=== PATIENT | female | born 1975 | race Caucasian/White ===

== ENCOUNTER 2018-07-17 12:48 | Emergency (ER) | payer SELFPAY ==
--- NOTE | 2018-07-17 13:45 | RAD ---
RADIOGRAPH CHEST 2 VIEWS: HISTORY: 43-year-old female with tachycardia and palpitations. FINDINGS: There is no air space density, pulmonary edema, pleural effusion, pneumothorax, or cardiomegaly. IMPRESSION: No acute cardiopulmonary findings. ilan POS: JUSTINO
[2018-07-17 13:48] LABS: #Basophils 0.1 thou/uL (0.0-0.2); #Eosinphils 0.1 thou/uL (0.0-0.7); #Lymphocytes 2.7 thou/uL (1.20-3.40); #Monocytes 0.6 thou/uL (0.11-0.59); #Neutrophils 6.1 thou/uL (1.40-6.50); %Basophils 0.6 % (0.0-1.0); %Eosinophils 0.8 % (0.0-10.0); %Lymphocytes 28.3 % (21.0-51.0); %Monocytes 5.9 % (0.0-10.0); %Neutrophils 64.5 % (42.0-75.0); Hemoglobin 14.4 g/dL (12.0-16.0); Mean Corpuscular Hemoglobin 31.1 pg (27.0-31.0); Mean Corpuscular Volume 91.6 fL (78.0-98.0); Mean Platelet Volume 8.3 fL (7.4-10.4); Platelet Count 235 thou/uL (130-400); RBC Distribution Width 11.5 % (11.5-14.5); Red Blood Cell (RBC) Count 4.62 mill/uL (4.20-5.40); White Blood Cell (WBC) Count 9.4 thou/uL (4.8-10.8)
[2018-07-17 14:08] LABS: Anion Gap 14 mmol/L (10-20); BUN (Urea Nitrogen) 10 mg/dL (7.0-18.7); Calc. Creatinine Clearance 0 mL/min (70-130); Calcium 9.5 mg/dL (7.8-10.44); Carbon Dioxide 21 mmol/L (22-29); Chloride 105 mmol/L (98-107); Estimated GFR-MDRD Greater than 90; Glucose 91 mg/dL (70-105); Potassium 3.9 mmol/L (3.5-5.1); Sodium 136 mmol/L (136-145)
[2018-07-17 14:15] LABS: CKMB 1.1 ng/mL (0-6.6); Troponin I Less than 0.010 ng/mL (< 0.028)
== END 2018-07-17 15:26 | disposition home or self-care (01) ==
LOC: ERS 12:48
DX: R00.2 Palpitations (principal)
CPT/HCPCS: 36415; 71046; 80048; 82553; 84484; 85025; 93005

== ENCOUNTER 2019-02-11 15:16 | Emergency (ER) | payer SELFPAY ==
[2019-02-11 15:52] LABS: #Basophils 0.1 thou/uL (0.0-0.2); #Eosinphils 0.1 thou/uL (0.0-0.7); #Lymphocytes 2.7 thou/uL (1.20-3.40); #Monocytes 0.7 thou/uL (0.11-0.59); #Neutrophils 4.1 thou/uL (1.40-6.50); %Basophils 1.3 % (0.0-1.0); %Eosinophils 1.3 % (0.0-10.0); %Lymphocytes 34.9 % (21.0-51.0); %Monocytes 8.9 % (0.0-10.0); %Neutrophils 53.6 % (42.0-75.0); Mean Corpuscular HGB CONC 33.7 g/dL (32.0-36.0); Mean Corpuscular Hemoglobin 30.6 pg (27.0-31.0); Mean Corpuscular Volume 90.7 fL (78.0-98.0); Mean Platelet Volume 8.5 fL (7.4-10.4); Platelet Count 240 thou/uL (130-400); RBC Distribution Width 11.5 % (11.5-14.5); Red Blood Cell (RBC) Count 4.59 mill/uL (4.20-5.40); White Blood Cell (WBC) Count 7.6 thou/uL (4.8-10.8)
[2019-02-11 16:02] LABS: BHCG - Serum Negative (NEGATIVE); Pregs Control Background? CLEAR/WHITE (CLR/WHITE); Pregs Control Bar Appear? YES (CONTROL BAR)
[2019-02-11 16:13] LABS: ALT (SGPT) 24 U/L (8-55); AST (SGOT) 18 U/L (5-34); Albumin 4.3 g/dL (3.5-5.0); Alkaline Phosphatase 51 U/L (40-150); Anion Gap 11 mmol/L (10-20); BUN (Urea Nitrogen) 13 mg/dL (7.0-18.7); Bilirubin, Total 0.6 mg/dL (0.2-1.2); Calc. Creatinine Clearance 0 mL/min (70-130); Calcium 9.1 mg/dL (7.8-10.44); Carbon Dioxide 27 mmol/L (22-29); Chloride 104 mmol/L (98-107); Estimated GFR-MDRD 84; Globulin 2.6 g/dL (2.4-3.5); Glucose 90 mg/dL (70-105); Potassium 3.6 mmol/L (3.5-5.1); Protein, Total 6.9 g/dL (6.0-8.3); Sodium 138 mmol/L (136-145)
[2019-02-11 16:51] LABS: Bilirubin Negative (Negative); Blood, Urine Trace (Negative); Clarity CLEAR (Clear); Glucose, Urine (Dipstick) Negative (Negative); Leukocyte Negative (Negative); Nitrite Negative (Negative); Protein, Urine (Dipstick) Negative (Neg-Trace); Specific Gravity, Urine 1.018 (1.002-1.036); Urobilinogen 0.2 mg/dL (0.2-1.0); pH, Urine 5.5 (5.0-9.0)
[2019-02-11 17:01] LABS: Bacteria/HPF None Seen HPF (None Seen); Hyaline Casts/LPF 0-3 HYALINE CAST LPF (0-3 Hyaline); Pathc Cast-AUWi Flag 0.81 (0-2.49); WBC/HPF 0-3 HPF (0-3)
[2019-02-11] MEDS ORDERED: Ketorolac Tromethamine 30 MG/ML VIAL ONE (20:05)
[2019-02-11] MEDS ORDERED: Ondansetron PF 4 MG/2 ML Vial ONE (20:05)
--- NOTE | 2019-02-11 20:35 | CT ---
ABDOMEN AND PELVIC CT SCAN WITHOUT IV CONTRAST: History: Bilateral flank pain. History of kidney stones. FINDINGS: Visualized lung bases appear clear. Status post cholecystectomy. Visualized liver is unremarkable. Vi sualized pancreas, spleen, adrenal glands are unremarkable. No renal calculi or acute obstruction. Somewhat oblong 3.3 x 5.8 cm diameter right renal cyst. No evidence for acute obstruction. Normal appearing appendix. Uterus and adnexa unremarkable. Urinary bladder is unremarkable. No abscess, tahir nopathy, or abnormal fluid collection. IMPRESSION: Unremarkable abdomen and pelvic CT scan without IV contrast. No renal calculi or obstruction. Norm al appearing appendix. POS: RRE
== END 2019-02-11 20:10 | disposition home or self-care (01) ==
LOC: ERS 15:16
DX: M54.5 Low back pain (principal); R31.9 Hematuria, unspecified; R11.0 Nausea
CPT/HCPCS: 36415; 74176; 80053; 81003; 81015; 84703; 85025; 96374; 96375; J1885; J2405